=== PATIENT | female | born 1970 | race Caucasian/White ===

== ENCOUNTER 2018-07-25 11:37 | Emergency (ER) | payer SELFPAY ==
[~2018-07-25] VITALS: Ht 170.2 cm; Wt 45.5 kg
[2018-07-25 11:41] VITALS: Ht 170.2 cm; Wt 45.5 kg
[2018-07-25] MEDS ORDERED: HYDROCODON-ACE1 EA10 PO (11:42)
[2018-07-25 12:16] LABS: APPEARANCE CLOUDY (CLEAR); COLOR YELLOW (YELLOW); SPECIFIC GRAVITY 1.015 (1.005-1.020)
[2018-07-25 12:17] LABS: BACTERIA MANY /hpf (NONE SEEN); BILIRUBIN NEGATIVE (NEGATIVE); GLUCOSE NEGATIVE (NEGATIVE); KETONE NEGATIVE (NEGATIVE); NITRITE POSITIVE (NEGATIVE); PROTEIN TRACE mg/dL (NEGATIVE); UROBILINOGEN NORMAL (NORMAL)
[2018-07-25 12:18] LABS: BASOPHILS 0.4 % (0-2); EOSINOPHILS 2.6 % (0-7); HEMOGLOBIN 15.5 g/dL (12-16); IMMATURE GRANULOCYTES 0.1 % (0-5); LYMPHOCYTES 48.7 % (15-50); MCH 35.5 pg (26.0-34.0); MCHC 35.2 g/dL (31.0-37.0); MCV 100.7 fL (80.0-100.0); MEAN PLATELET VOLUME 9.8 fL (7.4-10.4); MONOCYTES 9.8 % (2-11); MUCUS <1+ /lpf (NONE SEEN); NEUTROPHILS 38.4 % (40-80); RBC 4.37 10x6/uL (4.00-5.40); RDW 13.2 % (11.5-14.5); RED CELLS - URINE 0-5 /hpf (0-5)
[2018-07-25 12:19] LABS: ALBUMIN 3.7 g/dL (3.4-5.0); ALKALINE PHOSPHATASE 80 U/L (46-116); ALT (SGPT) 16 U/L (10-68); BILIRUBIN - TOTAL 0.33 mg/dL (0.2-1.3); CALC OSMOLALITY 281 mosm/kg (275-300); CALCIUM 8.6 mg/dL (8.5-10.1); CARBON DIOXIDE 27.5 mmol/L (21.0-32.0); CHLORIDE - SERUM 101 mmol/L (98-107); CREATININE - SERUM 0.8 mg/dL (0.6-1.3); PLATELET COUNT 257 10x3/uL (130-400); POTASSIUM - SERUM 3.4 mmol/L (3.5-5.1); SODIUM 142 mmol/L (136-145); UREA NITROGEN 4 mg/dL (7-18); eGFR NON AFRICAN AMERICAN 81 mL/min (90-120)
[2018-07-25 12:23] LABS: UDS - AMPHET NEGATIVE QUAL (NEGATIVE); UDS - BARB NEGATIVE QUAL (NEGATIVE); UDS - BENZO NEGATIVE QUAL (NEGATIVE); UDS - COCAINE NEGATIVE QUAL (NEGATIVE); UDS - OPIATE POSITIVE QUAL (NEGATIVE); UDS - PCP NEGATIVE QUAL (NEGATIVE); UDS - THC NEGATIVE QUAL (NEGATIVE)
[2018-07-25 12:29] LABS: GLUCOSE 129 mg/dL (74-106)
[2018-07-25] MEDS ORDERED: MACROBID100 MG PO (13:18)
[2018-07-25] MEDS ORDERED: EC-NAPROSYN500 MG PO (13:18)
[2018-07-25 13:41] VITALS: BP 132/95
== END 2018-07-25 13:42 | disposition home or self-care (01) ==
LOC: D.ER 11:37
PROVIDERS: Emergency Medicine
DX: N39.0 Urinary tract infection, site not specified (principal); H57.9 Unspecified disorder of eye and adnexa; R42 Dizziness and giddiness

== ENCOUNTER 2019-09-25 05:14 | Emergency (ER) | payer SELFPAY ==
[~2019-09-25] VITALS: Ht 170.2 cm; Wt 47.7 kg
[~2019-09-25 05:14] MED LIST: EC-NAPROSYN500 MG PO; HYDROCODON-ACE1 EA10 PO; MACROBID100 MG PO
[2019-09-25 05:18] VITALS: Ht 170.2 cm; Wt 47.7 kg
[2019-09-25] MEDS ORDERED: ACETAMINOPHEN500 M1 PO (05:28)
[2019-09-25] MEDS ORDERED: IBUPROFEN800 MG PO (05:28)
[2019-09-25] MEDS ORDERED: KEFLEX500 MG PO (05:28)
[2019-09-25] MEDS ORDERED: CYCLOBENZAPRINE10 MG PO (05:28)
[2019-09-25] MEDS ORDERED: ORAL ANALGESIC9 GM TOPICAL (05:31)
[2019-09-25 05:57] VITALS: BP 121/73
== END 2019-09-25 05:57 | disposition home or self-care (01) ==
LOC: D.ER 05:14
DX: K02.9 Dental caries, unspecified (principal); K08.89 Other specified disorders of teeth and supporting structures; M54.2 Cervicalgia